=== PATIENT | male | born 1980 | race Two or more races ===

== ENCOUNTER 2022-02-11 10:47 | Day surgery (SDC) | payer OTHER ==
[~2022-02-11] VITALS: Ht 180.3 cm; Wt 91.6 kg
[2022-02-11] MEDS ORDERED: AMOX1TAB5 PO (15:26)
[2022-02-11] MEDS ORDERED: PERCOCET 5-3251 EACH PO (15:26)
[2022-02-11] MEDS ORDERED: RECTICARE30 GM TOP (15:26)
== END 2022-02-11 21:10 | disposition home or self-care (01) ==
LOC: O/R 10:47 → ER 10:47 → SEC-K 10:47 → CIR.AMB 10:47 → EDSTATUS 13:00 → SEC-K 16:21 → O/R 16:21 → CIR.AMB 21:10
PROVIDERS: ATTEND Emergency Medicine
DX: K60.3 Anal fistula (principal); Z87.891 Personal history of nicotine dependence; Z20.822 Contact with and (suspected) exposure to COVID-19